=== PATIENT | female | born 1980 | race Caucasian/White ===

== ENCOUNTER 2018-01-12 16:21 | Emergency (ER) | payer BC ==
[2018-01-12] MEDS ORDERED: Sodium Chloride 0.9% 1,000 ML IV SCH (16:45)
--- NOTE | 2018-01-12 16:49 | EDM.PDOC ---
ED HPI GENERAL MEDICAL PROBLEM - General Chief Complaint: Neurological Problem Stated Complaint: STROKE SYMPTOMS Time Seen by Provider: 01/12/18 16:30 Source of Information: Reports: Patient History Limitations: Reports: No Limitations - History of Present Illness INITIAL COMMENTS - FREE TEXT/NARRATIVE: 37-year-old female presents to the ED suspecting that she may have had a stroke with right-sided weakness. He states she's had a really bad headache for the last 3 days. No headache at present. She's been in bed most of the day today. When she got up she started to feel some difference in the right side of her face with some numbness and tingling and seem to appreciate some weakness in her right arm and right leg was heavy and perhaps a little clumsy. Stream anxious and reports that she has been that way for the last 3 days. It has a lot to do with losing money in the stock market etc. She often gets a migraine headache prior to her period which started yesterday. She presents to the ED extremely apprehensive and very concerned that she has suffered a stroke. Of note she was able to operate a motor vehicle today but felt she was a little off but in no danger of crashing the motor vehicle etc. She has not appreciated any change in her balance or gait. No visual acuity changes. No nausea or vomiting. Onset: Today Onset Date: 01/12/18 Onset Time: 15:40 Duration: Minutes:, Other (Of note headache is been quite bad for the last 3 days but better today.) Location: Reports: Upper Extremity, Right, Lower Extremity, Right (Feels weak and clumsy feels weak and clumsy.) Quality: Reports: Other (Feels weak and clumsy on the right side of her face with some paresthesias.) Severity: Mild Improves with: Reports: None Worsens with: Reports: None Context: Denies: Activity, Exercise, Lifting, Sick Contact, Trauma, Other Associated Symptoms: Reports: Headaches, Malaise, Weakness (Feels a little weaker on her right side again this is subjective weakness.). 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 - Related Data Allergies Allergy/AdvReac Type Severity Reaction Status Date / Time No Known Allergies Allergy Verified 01/12/18 16:34 Home Meds: Home Meds ALPRAZolam [Xanax] 1 mg PO Q8H PRN #21 tablet 01/12/18 [Rx] Past Medical History Neurological History: Reports: Migraines Social & Family History - Tobacco Use Smoking Status *Q: Unknown Ever Smoked - Caffeine Use Caffeine Use: Reports: None - Recreational Drug Use Recreational Drug Use: No - Living Situation & Occupation Living situation: Reports: 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 Denies: Fever, Chills HEENT: Reports: Other Respiratory: Reports: No Symptoms (Supposedly wearing glasses but hasn't been wearing them for some time. She ordered glasses recently as she thought this may be continuing to her recurrent headaches.) Cardiovascular: Denies: Chest Pain, Blood Pressure Problem, Claudication, Dyspnea on Exertion, Edema, Lightheadedness, Orthopnea Endocrine: Reports: Fatigue GI/Abdominal: Reports: No Symptoms : Reports: Other (Currently menstruating.) Musculoskeletal: Reports: No Symptoms Skin: Reports: No Symptoms Neurological: Reports: Numbness, Tingling (Feels mild paresthesias in the right side of her face. Perhaps a little bit in her right calf.), Weakness. Denies: Headache, Trouble Speaking, Difficulty Walking, Change in Speech (Feels subjectively weak in the right arm and right leg.), Gait Disturbance, Other Psychiatric: Reports: Anxiety Hematologic/Lymphatic: Reports: No Symptoms Immunologic: Reports: No Symptoms ED EXAM, NEURO - Physical Exam Exam: See Below Exam Limited By: No Limitations General Appearance: Alert, Anxious (Very anxious at this time.), Severe Distress Eye Exam: Bilateral Eye: Normal Inspection (No gaze palsy.), PERRL Throat/Mouth: Normal Inspection, Normal Lips, Normal Teeth, Normal Oropharynx, Other Neck: Normal Inspection, Supple, Non-Tender, Full Range of Motion. No: Carotid Bruit, Lymphadenopathy (L), Lymphadenopathy (R) Respiratory/Chest: No Respiratory Distress, Lungs Clear, Normal Breath Sounds, No Accessory Muscle Use, Chest Non-Tender Cardiovascular: Normal Peripheral Pulses, Regular Rate, Rhythm, No Edema, No Gallop, Tachycardia, Systolic Murmur (Grade 1-2 systolic ejection murmur best heard at left lower sternal border. She's never had an echocardiogram to confirm the source of the murmur.) GI/Abdominal: Normal Bowel Sounds (Initially had mild tachycardia of 10 2/m), Soft, Non-Tender, No Organomegaly Neurological: Alert, Normal Dorsiflexion, CN II-XII Intact, No Motor/Sensory Deficits, Oriented x 3, Other (No pronator drift.). No: Abnormal Gait, Ataxia, Abnormal Finger to Nose, Babinski Extremities: Normal Inspection, Normal Range of Motion, Non-Tender, No Pedal Edema Psychiatric: Anxious Skin Exam: Warm, Dry, Intact, Normal Color, No Rash Course - Vital Signs Last Recorded V/S: Last Vital Signs Temp 36.6 C 01/12/18 16:30 Pulse 104 H 01/12/18 16:30 Resp 20 01/12/18 16:30 BP 136/78 01/12/18 16:30 Pulse Ox 98 01/12/18 16:30 - Orders/Labs/Meds Orders: Active Orders 24 hr Category Date Time Status EKG Documentation Completion [RC] STAT Care 01/12/18 16:56 Active Labs: Laboratory Tests 01/12/18 01/12/18 01/12/18 Range/Units 16:33 16:55 16:55 WBC 7.21 (3.98-10.04) K/mm3 RBC 4.63 (3.98-5.22) M/mm3 Hgb 13.8 (11.2-15.7) gm/L Hct 40.6 (34.1-44.9) % MCV 87.7 (79.4-94.8) fl MCH 29.8 (25.6-32.2) pg MCHC 34.0 (32.2-35.5) g/dl RDW Std Deviation 39.5 (36.4-46.3) fL Plt Count 262 (182-369) K/mm3 MPV 9.5 (9.4-12.3) fl Neutrophils % (Manual) 54 (40-60) % Band Neutrophils % 0 (0-10) % Lymphocytes % (Manual) 29 (20-40) % Atypical Lymphs % 3 % Monocytes % (Manual) 9 (2-10) % Eosinophils % (Manual) 5 (0.7-5.8) % Basophils % (Manual) 0 L (0.1-1.2) Platelet Estimate Adequate Plt Morphology Comment Normal RBC Morph Comment Normal PT 10.3 (9.5-12.1) SECONDS INR 0.94 APTT (24-31) SECONDS Sodium (136-145) mEq/L Potassium (3.5-5.1) mEq/L Chloride (98-107) mEq/L Carbon Dioxide (21-32) mEq/L Anion Gap (5-15) BUN (7-18) mg/dL Creatinine (0.55-1.02) mg/dL Est Cr Clr Drug Dosing mL/min Estimated GFR (MDRD) (>60) mL/min BUN/Creatinine Ratio (14-18) Glucose (74-106) mg/dL POC Glucose 110 H (70-105) mg/dL Calcium (8.5-10.1) mg/dL Total Bilirubin (0.2-1.0) mg/dL AST (15-37) U/L ALT (14-59) U/L Alkaline Phosphatase (46-116) U/L Total Protein (6.4-8.2) g/dl Albumin (3.4-5.0) g/dl Globulin gm/dL Albumin/Globulin Ratio (1-2) 01/12/18 01/12/18 Range/Units 16:55 16:55 WBC (3.98-10.04) K/mm3 RBC (3.98-5.22) M/mm3 Hgb (11.2-15.7) gm/L Hct (34.1-44.9) % MCV (79.4-94.8) fl MCH (25.6-32.2) pg MCHC (32.2-35.5) g/dl RDW Std Deviation (36.4-46.3) fL Plt Count (182-369) K/mm3 MPV (9.4-12.3) fl Neutrophils % (Manual) (40-60) % Band Neutrophils % (0-10) % Lymphocytes % (Manual) (20-40) % Atypical Lymphs % % Monocytes % (Manual) (2-10) % Eosinophils % (Manual) (0.7-5.8) % Basophils % (Manual) (0.1-1.2) Platelet Estimate Plt Morphology Comment RBC Morph Comment PT (9.5-12.1) SECONDS INR APTT 25 (24-31) SECONDS Sodium 138 (136-145) mEq/L Potassium 3.3 L (3.5-5.1) mEq/L Chloride 106 (98-107) mEq/L Carbon Dioxide 25 (21-32) mEq/L Anion Gap 10.3 (5-15) BUN 18 (7-18) mg/dL Creatinine 0.9 (0.55-1.02) mg/dL Est Cr Clr Drug Dosing 75.52 mL/min Estimated GFR (MDRD) > 60 (>60) mL/min BUN/Creatinine Ratio 20.0 H (14-18) Glucose 107 H (74-106) mg/dL POC Glucose (70-105) mg/dL Calcium 8.9 (8.5-10.1) mg/dL Total Bilirubin 0.3 (0.2-1.0) mg/dL AST 27 (15-37) U/L ALT 28 (14-59) U/L Alkaline Phosphatase 86 (46-116) U/L Total Protein 7.4 (6.4-8.2) g/dl Albumin 3.6 (3.4-5.0) g/dl Globulin 3.8 gm/dL Albumin/Globulin Ratio 1.0 (1-2) Meds: Medications Discontinued Medications Generic Name Dose Route Start Last Admin Trade Name Freq PRN Reason Stop Dose Admin Sodium Chloride 1,000 mls @ 125 mls/hr 01/12/18 16:45 01/12/18 17:01 Normal Saline IV 125 mls/hr ASDIRECTED PRADIP Administration Lorazepam 1 mg 01/12/18 17:05 01/12/18 17:13 Ativan IVPUSH 01/12/18 17:06 1 mg ONETIME ONE Administration - Radiology Interpretation Free Text/Narrative:: 37-year-old female presents the ED extremely anxious and concerned that she is having a stroke with right-sided facial numbness tingling and similar symptoms in her right arm and right leg. Of note she's had migraine headaches off and on for the last 3 days. She is extremely stressed by challenges in the stock market the last few days. Not sleeping very well. Has been in bed most of today in a darkened room. She got up at 1530 hrs. take her child to speech therapy she felt a little off. By this she meant she didn't feel quite right in the right side of her face. Of note she was able to drive the car to the speech therapist. Upon arrival there the speech therapist thought that she perhaps had a mild right-sided facial droop. Therefore she had to drive her immediately to the ED. On examination I cannot identify any significant focal neurological deficit in the cranial nerves right arm or right leg. There is no pronator drift finger to nose movements heel to dover negative Romberg negative Babinski she is able to walk toe to heel and heel to toe. A stroke alert was called on this patient and CT head was performed. CT is within normal limits showing no intracranial bleeding or mass effect. - Re-Assessments/Exams Free Text/Narrative Re-Assessment/Exam: 01/12/18: 1710: Patient is willing to have Ativan 1 mg IV given to reduce her level of anxiety and stress at this point time. Complete neuro exam repeated and again I can find no definite deficit. Patient reassured the CT looks normal. 01/12/18 17:56 Labs are for the most part back. Total white count is normal at 7.21 differential pending. Hemoglobin 13.8 with hematocrit of 40.6. Normal Platelet count is 262,000. PT is 10.3 with an INR of 0.94 PTT is 25. Sodium 138 with potassium of 3.3. Chloride 106 with a bicarbonate of 25. Anion gap is 10.3. BUN was 18 with a creatinine of 0.9. GFR is greater than 60. Glucose is 107 calcium was 8.9 liver function is normal. 01/12/18 18:30: Complete neuro exam repeated and again no deficits identified. She's able to the front heel to toe walk and walk backwards in this regard. Feels a sense of numbness and tingling in the right side of her face adjacent to her lateral eye. Gain no neurological deficits are evident. Lab work came back normal. She will therefore be discharged to home. I will write a prescription for Maxalt tablets 10 mg strength to be used 1 every 2 hours at the onset of migraine headache and can be used up to 3 times in a 24-hour period of time 12 tablets provided. Also wrote a prescription for Xanax 1 mg strength to be used 1 every 8 hours as needed for relief of anxiety and/or to help sleep good might insight is that this is mostly precipitated by severe anxiety. Migraine headache may have had something to contribute to her symptoms as well. Departure - Departure Time of Disposition: 18:50 Disposition: Home, Self-Care 01 Condition: Fair Clinical Impression: Migraine aura without headache (migraine equivalents) - Discharge Information *PRESCRIPTION DRUG MONITORING PROGRAM REVIEWED*: Not Applicable *COPY OF PRESCRIPTION DRUG MONITORING REPORT IN PATIENT SHARON: Not Applicable Prescriptions: ALPRAZolam [Xanax] 1 mg PO Q8H PRN #21 tablet PRN Reason: Anxiety Instructions: Migraine Headache, [id number] Referrals: PCP,None [Primary Care Provider] - Forms: ED Department Discharge Additional Instructions: Evaluation the emergent today in regards to development of right-sided facial numbness and tingling and feeling of weakness in the right side of the face with a symmetrical smile. Also weakness or clumsiness feeling in the right arm and right leg. Concerns were initially for possible stroke. Complete neuro examination done twice during her stay is within normal limits with no evidence of stroke. CT of the brain was completely normal as well. Lab work also proved to be completely normal. Impression is this was brought on by recent migraine headaches with possible vasospasm causing poor blood supply to the left side of the brain causing right sided symptoms. Also associated large amount of stress in her life at this time recognize. The only treatment given in the ED was Ativan 1 mg IV to reduce anxiety. Follow-up if any further symptoms are still apparent within the next 24 hours. I did write a prescription for Maxalt tablets to be taken 10 mg every 2 hours as needed time up to 3 times in a 24. Time for relief of migraine headache. Xanax tablets 1 mg strength to be used 1 every 8 hours as needed to help sleep for relieve anxiety. Follow-up with personal care physician if any further problems occur. - My Orders Last 24 Hours: My Active Orders 01/12/18 16:56 EKG Documentation Completion [RC] STAT - Assessment/Plan Last 24 Hours: My Active Orders 01/12/18 16:56 EKG Documentation Completion [RC] STAT
--- NOTE | 2018-01-12 16:57 | CT ---
Head CT Technique: Multiple axial sections through the brain were obtained. Intravenous contrast was not utilized. Comparison: No previous intracranial imaging is available. Findings: Ventricles along the basal cisterns and sulci over the convexities are within normal limits for the patient's age. No abnormal parenchymal densities are seen. No evidence of intracranial hemorrhage. No midline shift or mass effect is seen. Bone window settings were reviewed which shows minimal mucosal thickening within the posterior right ethmoid sinus. No acute calvarial abnormality is seen. Impression: 1. Sinus finding which is incidental. 2. Nothing acute is seen on noncontrast head CT study. Diagnostic code #1
[2018-01-12] MEDS ORDERED: LORazepam 2 MG/ML SDV IVPUSH ONE (17:05)
== END 2018-01-12 19:10 | disposition home or self-care (01) ==
LOC: JD.ED 16:21
DX: G43.109 Migraine with aura, not intractable, without status migrainosus (principal)
CPT/HCPCS: 36415; 70450; 80053; 82962; 85007; 85027; 85610; 85730; 93005; 96361; 96374; 99285; J2060; J7040; 99284